=== PATIENT | male | born 2000 | race Two or more races ===

== ENCOUNTER → 2023-08-29 | Emergency (ER) | payer OTHER ==
[~2023-08-29] VITALS: Ht 185.4 cm; Wt 77.1 kg
[~2023-08-29] MED LIST: ACET-868 PO
[2023-08-29 18:23] VITALS: BP 149/96; TEMP 98.1; O2SAT 99
== END | disposition home or self-care (01) ==
LOC: ER 18:13
DX: S93.402A Sprain of unspecified ligament of left ankle, initial encounter (principal); X50.1XXA Overexertion from prolonged static or awkward postures, initial encounter; Y93.89 Activity, other specified; Y92.89 Other specified places as the place of occurrence of the external cause; Y99.0 Civilian activity done for income or pay
CPT/HCPCS: 73610-TC